=== PATIENT | female | born 2005 | race Caucasian/White ===

== ENCOUNTER 2024-01-18 12:45 | Emergency (ER) | payer BC, SELFPAY ==
[2024-01-18 12:47] VITALS: BP 118/81
[2024-01-18 13:29] VITALS: BP 100/65
--- NOTE | 2024-01-18 13:46 | ED.GENMED ---
History of Present Illness
General
Chief Complaint: Musculo-Skeletal Complaint
Source: patient and family
Time Seen by Provider: 01/18/24 13:36
History of Present Illness
History of Present Illness:
18 year old female with worsening pain/swelling to left side of neck. She also has difficulty speaking and swallowing. She was sick one month ago with sore throat and tested negative for COVID and strep. Symptoms never really went away. No
vomiting or SOB. No abdominal pain
Past History
Social History
Tobacco: Non-smoker
Alcohol: None
Drug: None
Phy Exam
Physical Exam
Physical Exam:
General: Well appearing female NAD
HEENT: NC/AT there is no trismus but speaks with garbled voice. There is asymmetrical swelling of the left posterior pharynx
TMs intact, no posterior adenopathy
Heart: RRR, no mumurs
Lungs; CTA no stridor or wheeze
Abd: soft, nontender, no organomegaly.
Ext: no cyanosis
Course
Orders/Labs/Results
Orders:
Orders
01/18/24 13:44
CT Neck With Iv Contrast Urgent
Comment:
Reason For Exam: left neck swelling, difficutly speaking
0.9% Sodium Chloride 1000 ml [Nss] 1,000 ml IV BOLUS
Dexamethasone Sod Phosphate [Decadron] 10 mg IV NOW STA
Ketorolac [Toradol] 15 mg IV NOW STA
01/18/24 13:45
Test Result ONCE
01/18/24 13:57
Complete Blood Count/With Diff Urgent
Comprehensive Metabolic Panel Urgent
HCG, Serum Qualitative Screen Urgent
Monotest Urgent
01/18/24 16:50
Amoxicillin 875 mg/Clav 125 mg [Augmentin 875 mg/125 mg] 1 tablet PO NOW STA
Abnormal Lab Results
01/18/24
13:57
WBC 15.1 H 10^3/uL
(4.8-10.8)
RBC 3.96 L 10^6/uL
(4.20-5.40)
Hgb 11.7 L g/dL
(12.0-16.0)
Hct 33.9 L %
(37.0-47.0)
Plt Count 414 H 10^3/uL
(130-400)
MPV 10.8 H fL
(7.4-10.4)
Abs Immat Gran (auto) 0.1 H 10^3/uL
(0-0.05)
Absolute Neuts (auto) 11.8 H 10^3/uL
(1.4-6.5)
Absolute Monos (auto) 1.7 H 10^3/uL
(0.1-0.6)
Neutrophils % 78.7 H %
(42.2-75.2)
Lymphocytes % 9.2 L %
(20.5-51.1)
Monocytes % 11.1 H %
(1.7-9.3)
01/18/24 13:57
01/18/24 13:57
Vital Signs
Initial and Last Documented VS:
Initial Vital Signs
Temp Pulse Resp BP Pulse Ox
100 F 121 22 118/81 97
01/18/24 12:47 01/18/24 12:47 01/18/24 12:47 01/18/24 12:47 01/18/24 12:47
Last Documented Vital Signs
Temp Pulse Resp BP Pulse Ox
100 F 78 16 123/75 98
01/18/24 12:47 01/18/24 16:45 01/18/24 16:45 01/18/24 16:13 01/18/24 16:45
MDM/Problems Addressed
Differential Diagnosis Includes:
neck/throat pain/swelling. COnsider pharyngitis vs [employer] vs mono.
Labs pending. Toradol, decadron ordered. CT pending.
*Critical Care Note
Total Time (30-74mins, 75-104mins- exclusive of procedures): Not Applicable
Update Note
Update Note:
Workup demonstrates leukocytosis with a white blood cell count of 15,000. Monotest is negative. CT demonstrates 1 cm peritonsillar abscess on the left side. Patient has improvement after Decadron and Toradol. Discussed finding with patient and
mother and ENT. At this point we will hold off on any drainage given the size and attempt Augmentin and steroid over the next couple days. Turn precautions were given stable for discharge
ED Attending Note
-
Portions of this chart may have been created with voice recognition software.� Occasional wrong word or��sound alike� substitutions may have occurred due to the inherent limitations of voice recognition software.
Discharge Plan
Departure
Patient Disposition: Home (Routine Discharge)
Date of Disposition: 01/18/24
Time of Disposition: 16:53
Patient with high blood pressure during this ER visit?: No
Discharge Problem:
Abscess, peritonsillar
Instructions: Peritonsillar Abscess, Adult
Prescriptions:
New
amoxicillin-pot clavulanate 875-125 mg tablet
1 tab PO BID Qty: 14 0RF
prednisone 20 mg tablet
40 mg PO DAILY 5 Days Qty: 10 0RF
No Action
prednisone 20 MG tablet
20 mg PO DAILY Qty: 4 0RF
prednisone 20 MG tablet
20 mg PO DAILY Qty: 3 0RF
Referrals:
Khoi Chinchilla MD [Family Provider] -
Activity Restrictions/Additional Instructions:
Take antibiotics and steroids as directed. Return for worsening symptoms, otherwise follow up with PMD.
Interventions
Interventions:
*Risk Screen - Suicide Last Done: 01/18/24 12:47
*General Assessment Last Done: 01/18/24 12:47
*Neglect/Abuse Screening Last Done: 01/18/24 12:47
*ED COVID-19 Vaccine History Last Done: 01/18/24 12:55
ED-Musculoskeletal Assessment Last Done: 01/18/24 13:30
Discharge Date and Time
Print Language: HEBREW
[2024-01-18] MEDS: TORADOL 15 MG IV (13:55)
[2024-01-18] MEDS: DECADRON 10 MG IV (13:55)
[2024-01-18] MEDS: NSS 1000 IV (13:56)
[2024-01-18 14:10] LABS: % Basophils 0.4 % (0-2); % Eosinophils 0.3 % (0-6); % Immature Granulocytes 0.3 % (0-0.5); % Lymphocytes 9.2 % (20.5-51.1); % Monocytes 11.1 % (1.7-9.3); % Neutrophils 78.7 % (42.2-75.2); Absolute Basophils 0.1 10^3/uL (0-0.2); Absolute Eosinophils 0.1 10^3/uL (0-0.7); Absolute Immature Granulocytes 0.1 10^3/uL (0-0.05); Absolute Lymphocytes 1.4 10^3/uL (1.2-3.4); Absolute Monocytes 1.7 10^3/uL (0.1-0.6); Absolute Neutrophils 11.8 10^3/uL (1.4-6.5); Hematocrit 33.9 % (37.0-47.0); Hemoglobin 11.7 g/dL (12.0-16.0); Mean Corp Hgb Conc. 34.5 g/dL (33.0-37.0); Mean Corpuscular Hgb 29.5 pg (27.0-31.0); Mean Corpuscular Volume 85.6 fL (81.0-99.0); Mean Platelet Volume 10.8 fL (7.4-10.4); Nucleated Red Blood Cells % 0 %; Platelet Count 414 10^3/uL (130-400); Red Blood Cell Count 3.96 10^6/uL (4.20-5.40); Red Cell Dist. Width 12.1 % (11.5-14.5); White Blood Cell Count 15.1 10^3/uL (4.8-10.8)
[2024-01-18 14:21] LABS: HCG, Serum Qualitative Screen Negative
[2024-01-18 14:24] LABS: ALT (SGPT) 13 U/L (0-35); AST (SGOT) 19 U/L (14-36); Albumin 4.4 g/dl (3.5-5.0); Alkaline Phosphatase 121 U/L (38-126); Blood Urea Nitrogen 9 mg/dl (7-17); Calcium 9.9 mg/dl (8.4-10.2); Carbon Dioxide 23 mmol/L (22-30); Chloride 102 mmol/L (98-107); Glucose 98 mg/dl (70-99); Potassium 4.1 mmol/L (3.5-5.1); Sodium 136 mmol/L (135-145); Total Bilirubin 0.8 mg/dl (0.2-1.3); Total Protein 7.7 g/dl (6.3-8.2); eGFR > 60.00
[2024-01-18 14:33] LABS: Monotest Negative (Negative)
[2024-01-18 15:00] VITALS: BP 106/62
[2024-01-18 15:44] VITALS: BP 106/62
[2024-01-18 16:13] VITALS: BP 123/75
[2024-01-18] MEDS: AUGMENTIN 875 MG/125 MG 1 TABLET PO (16:55)
== END 2024-01-18 17:26 | disposition home or self-care (01) ==
LOC: EMR 12:45
PROVIDERS: Physician Assistant; EMERGENCY PHYSICIAN Emergency Medicine; FAMILY PHYSICIAN Pediatrics
DX: J36 Peritonsillar abscess (principal); R22.1 Localized swelling, mass and lump, neck; R47.9 Unspecified speech disturbances
CPT/HCPCS: 99284; 96361; 96374; 96375; 70491; 80053; 84703; 85025; 86308; Q9967

== ENCOUNTER 2025-04-20 17:57 | Emergency (ER) | payer SELFPAY ==
[2025-04-20 17:59] VITALS: BP 142/88
[2025-04-20 19:00] VITALS: BMI 27.3
--- NOTE | 2025-04-20 19:17 | ED.MUSCINJ ---
HPI-Injury
General
Chief Complaint: Musculo-Skeletal Complaint
Source: patient
Exam Limitations: none
Time Seen by Provider: 04/20/25 19:10
History of Present Illness-Injury
Initial Injury comments:
20-year-old female presents complaining of right foot pain starting last evening. She was at work and a heavy metal jacek fell onto her foot. She notes swelling and pain. She denies ankle pain. She has been ambulatory but with discomfort
Past History
Social History
Tobacco: Non-smoker
Alcohol: None
Drug: None
Phy Exam
Physical Exam
Physical Exam:
General: Well-appearing female in no acute respiratory distress
Musculoskeletal exam: Right foot swollen ecchymotic and tender mainly over the distal metatarsals particularly over the first metatarsal. There is no deformity or malrotation. She is able to flex and extend all of her toes. The ankle is
nontender. She has a 2+ DP pulse to the right wrist cap refill to the
Injury Course
Orders/Labs/Results
Orders:
Orders
04/20/25 17:58
Ankle, Right 3 view CR [CR Ankle - Right Min 3 Views *] Urgent
Comment:
Reason For Exam: pain
CR Foot - Right Min 3 Views Urgent
Comment:
Reason For Exam: pain
04/20/25 19:16
Ortho Boot Right- Treatment ONCE
Short or tall?: Short
MDM/Problems Addressed
Differential Diagnosis Includes:
Swelling ecchymosis and discomfort after blunt trauma to the right foot. Consider contusion versus fracture versus dislocation
I have personally visualized x-rays of the right foot which are negative for acute finding other than soft tissue contusion. No evidence of fracture. Will place a walking boot on and have her follow-up.
*Pulse Oximetry
SaO2: 100
Oxygen Mode of Delivery: Room air
Patient hypoxic: no
*Critical Care Note
Total Time (30-74mins, 75-104mins- exclusive of procedures): Not Applicable
ED Attending Note
-
Portions of this chart may have been created with voice recognition software.� Occasional wrong word or��sound alike� substitutions may have occurred due to the inherent limitations of voice recognition software.
Discharge Plan
Departure
Patient Disposition: Home (Routine Discharge)
Date of Disposition: 04/20/25
Time of Disposition: 19:18
Patient with high blood pressure during this ER visit?: No
Discharge Problem:
Contusion
Instructions: Muscle and Bone Pain (DC), Contusion (DC)
Prescriptions:
No Action
prednisone 20 MG tablet
20 mg PO DAILY Qty: 4 0RF
prednisone 20 MG tablet
20 mg PO DAILY Qty: 3 0RF
amoxicillin-pot clavulanate 875-125 mg tablet
1 tab PO BID Qty: 14 0RF
prednisone 20 mg tablet
40 mg PO DAILY 5 Days Qty: 10 0RF
Referrals:
UNKNOWN - PT NOT,INTERVIEWE [Family Provider]
Activity Restrictions/Additional Instructions:
Elevate for swelling. Use boot for support with ambulation. Use ibuprofen or Tylenol for pain. Follow-up with your work-related physician
Interventions
Interventions:
*Risk Screen - Suicide Last Done: 04/20/25 17:59
*General Assessment Last Done: 04/20/25 19:00
*Neglect/Abuse Screening Last Done: 04/20/25 17:59
*ED- Fall Risk Assessment Last Done: 04/20/25 17:59
*ED COVID-19 Vaccine History Last Done: 04/20/25 19:00
*ED Influenza Vaccine History Last Done: 04/20/25 19:00
ED-Musculoskeletal Assessment Last Done: 04/20/25 19:00
Discharge Date and Time
Print Language: MACANESE
== END 2025-04-20 19:39 | disposition home or self-care (01) ==
LOC: EMR 17:57
PROVIDERS: EMERGENCY PHYSICIAN Emergency Medicine
DX: S90.31XA Contusion of right foot, initial encounter (principal); W20.8XXA Other cause of strike by thrown, projected or falling object, initial encounter; Y99.0 Civilian activity done for income or pay
CPT/HCPCS: 99283; 73610; 73630